=== PATIENT | male | born 2000 | race Two or more races ===

== ENCOUNTER 2019-06-09 22:25 | Emergency (ER) | payer OTHER ==
[~2019-06-09] VITALS: Ht 182.9 cm; Wt 94.0 kg
[2019-06-09] MEDS ORDERED: IBUPROFEN 600 MG TABLET. PO ONE (23:30)
[2019-06-09 23:35] VITALS: BP 114/63
--- NOTE | 2019-06-10 00:10 | PHYS DOC ---
Past History Past Medical History: No Pertinent History Past Surgical History: No Surgical History Alcohol Use: Occasionally Drug Use: None Adult General Chief Complaint Chief Complaint: FOOT INJURY PAIN HPI HPI Patient is a 19-year-old male with a foot injury he twisted it while running has a bump on the left side of the foot moderate pain hard to walk he is hopping to get into the emergency room Current Medications Current Medications Current Medications Medications (Trade) Dose Ordered Sig/Chas Start Time Stop Time Status Last Admin Dose Admin Ibuprofen (Motrin) 600 mg 1X ONCE 06/09/19 23:30 06/09/19 23:31 DC 06/09/19 23:09 600 MG Allergies Allergies Allergies Coded Allergies Type Severity Reaction Last Updated Verified No Known Drug Allergies 06/09/19 No Physical Exam Physical Exam Constitutional: Well developed, well nourished, no acute distress, non-toxic appearance. [] HENT: Normocephalic, atraumatic, bilateral external ears normal, oropharynx moist, no oral exudates, nose normal. [] Eyes: PERRLA, EOMI, conjunctiva normal, no discharge. [] Neck: Normal range of motion, no tenderness, supple, no stridor. [] Cardiovascular:Heart rate regular rhythm, no murmur [] Lungs & Thorax: Bilateral breath sounds clear to auscultation [] Abdomen: Bowel sounds normal, soft, no tenderness, no masses, no pulsatile masses. [] Skin: Warm, dry, no erythema, no rash. [] Back: No tenderness, no CVA tenderness. [] Extremities: There is a contusion noted to the lateral left of the foot with mild to moderate swelling at the base of the fifth metatarsal no focal tenderness of the ankle Current Patient Data Vital Signs Vital Signs Date Time Temp Pulse Resp B/P (MAP) Pulse Ox O2 Delivery O2 Flow Rate FiO2 06/09/19 23:35 74 18 114/63 (80) 97 Room Air 06/09/19 22:25 98.6 Lab Results * Mild Temperature (Fahrenheit): * 98.6 degrees F (97.6-99.5) Patient Temperature * 98.6 degrees F (97.5-99.5) Temperature Source * Oral Blood Pressure Systolic * 137 mm Hg (100-140) Blood Pressure Diastolic * 60 mm Hg (60-100) Blood Pressure Mean * 85 mm Hg Blood Pressure Location * Right Arm Blood Pressure Source * Automatic Cuff Pulse Rate * 81 beats per minute (60-90) Pulse Assessment Method * Monitor Respiratory Rate EKG EKG [] Radiology/Procedures Radiology/Procedures [] Course & Med Decision Making Course & Med Decision Making Pertinent Labs and Imaging studies reviewed. (See chart for details) []X-ray negative acute read by me no obvious fracture of the fifth metatarsal is identified patient was placed in Natalio wrap and given crutches with symptomatic precautions final read pending patient aware Dragon Disclaimer Dragon Disclaimer This electronic medical record was generated, in whole or in part, using a voice recognition dictation system. Departure Departure: Impression: Primary Impression: Foot sprain Disposition: HOME, SELF-CARE Condition: STABLE Patient Instructions: Foot Sprain NICOLE PAGAN MD Jun 10, 2019 00:10
--- NOTE | 2019-06-10 00:45 | RAD ---
FOOT LEFT 3V History: Trauma. Pain. Technique: 3 views left foot. Comparison: None. Findings: Normal alignment. No fracture. Soft tissues unremarkable. Impression: 1. No acute osseous abnormality. Electronically signed by: Eder Moore DO (06/10/2019 12:42 AM) [facility]
== END 2019-06-09 23:35 | disposition home or self-care (01) ==
LOC: ER 22:25
DX: S93.602A Unspecified sprain of left foot, initial encounter (principal); X50.3XXA Overexertion from repetitive movements, initial encounter; Y93.02 Activity, running; Y92.89 Other specified places as the place of occurrence of the external cause; Y99.8 Other external cause status
CPT/HCPCS: 73630; 99284